=== PATIENT | male | born 1985 | race Two or more races ===

== ENCOUNTER 2018-11-15 21:58 | Emergency (ER) | payer MEDICAID ==
[~2018-11-15] VITALS: Ht 172.7 cm; Wt 70.3 kg
[2018-11-15 22:11] VITALS: BP 122/76
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
[2018-11-15] MEDS ORDERED: LIDOCAINE 1%-EPI 1:100,000 20 ML VIAL ONE (23:27)
--- NOTE | 2018-11-16 00:36 | NUR ---
Patient discharged to home in stable condition. Written and verbal after care instructions given. Patient verbalizes understanding of instruction. Pt ambulatory with a steady gait. Wound dressing done by EMT.ACI given to pt.
== END 2018-11-16 00:38 | disposition home or self-care (01) ==
LOC: ER 22:01
DX: S61.411A Laceration without foreign body of right hand, initial encounter (principal); W25.XXXA Contact with sharp glass, initial encounter; Y93.89 Activity, other specified; Y92.89 Other specified places as the place of occurrence of the external cause; Y99.0 Civilian activity done for income or pay
CPT/HCPCS: 12004; 73130; 99284; J3490; L3763